=== PATIENT | female | born 1990 | race Caucasian/White ===

== ENCOUNTER → 2021-09-05 14:09 | Outpatient (BNVA) | payer OTHER, SELFPAY | PROVIDERS: Visit Provider Obstetrics & Gynecology | DX: Z12.4 Encounter for screening for malignant neoplasm of cervix (principal); N89.8 Other specified noninflammatory disorders of vagina; N93.9 Abnormal uterine and vaginal bleeding, unspecified | CPT/HCPCS: 84144; 84403; 84443; 85025; 87070; 87205; 87624 ==

== ENCOUNTER → 2021-09-14 13:46 | Outpatient (BNVA) | payer OTHER, SELFPAY | PROVIDERS: Visit Provider Obstetrics & Gynecology | DX: N93.9 Abnormal uterine and vaginal bleeding, unspecified (principal) | CPT/HCPCS: 76830 ==

== ENCOUNTER → 2021-10-02 10:45 | Outpatient (BNVA) | payer OTHER, SELFPAY | PROVIDERS: Visit Provider Obstetrics & Gynecology | DX: N93.9 Abnormal uterine and vaginal bleeding, unspecified (principal) | CPT/HCPCS: 84403 ==

== ENCOUNTER → 2021-10-05 10:45 | Outpatient (BNVA) | payer OTHER, SELFPAY | PROVIDERS: Visit Provider Obstetrics & Gynecology | DX: N93.9 Abnormal uterine and vaginal bleeding, unspecified (principal); R79.89 Other specified abnormal findings of blood chemistry; N83.202 Unspecified ovarian cyst, left side | CPT/HCPCS: 83498 ==

== ENCOUNTER → 2021-10-19 14:12 | Outpatient (BNVA) | payer OTHER, SELFPAY | PROVIDERS: Visit Provider Obstetrics & Gynecology | DX: R79.89 Other specified abnormal findings of blood chemistry (principal) | CPT/HCPCS: 82627 ==

== ENCOUNTER → 2022-01-14 12:55 | Outpatient (BNVA) | payer OTHER, SELFPAY | PROVIDERS: Visit Provider Podiatrist Foot & Ankle Surgery | DX: S93.602A Unspecified sprain of left foot, initial encounter (principal); X58.XXXA Exposure to other specified factors, initial encounter | CPT/HCPCS: 73630 ==

== ENCOUNTER 2022-01-24 13:51 | Outpatient (CLI) | payer OTHER, SELFPAY ==
--- NOTE | 2022-01-24 14:00 | MR_ITS ---
WS: [id number] MRI LEFT FOOT without CONTRAST. History: LEFT foot pain for 3 weeks. No trauma. Comparison: 01/14/2022 radiograph Multiplanar, multisequence imaging is performed without contrast. There is a small amount of increased T2 signal within the plantar intraosseous muscles and the lumbri cals of the foot. Increased T2 signal consistent with edema extends from the proximal first metatarsa l along the plantar surface of the foot to the proximal fourth metatarsal. No signal abnormality with in the marrow. Lisfranc ligament appears intact. There is no widening or asymmetry with respect to th e tarsal and metatarsal alignment. The distal calcaneus is normal. Plantar aponeurosis is normal. No marrow edema in the calcaneus or ta rose mary. MR/MR foot LT wo con* [id number] IMPRESSION: 1. No fracture. 2. Soft tissue edema is mild within the plantar intraosseous muscles and the l umbricals of the foot. Consistent with a mild sprain and soft tissue injury. 3. Lisfranc ligament appears intact.
== END 2022-01-24 13:52 | disposition home or self-care (01) ==
PROVIDERS: Visit Provider Podiatrist Foot & Ankle Surgery
DX: M79.672 Pain in left foot (principal); R60.1 Generalized edema
CPT/HCPCS: 73718

== ENCOUNTER → 2022-02-04 13:35 | Outpatient (BNVA) | payer OTHER, SELFPAY | PROVIDERS: Visit Provider Obstetrics & Gynecology | DX: N93.9 Abnormal uterine and vaginal bleeding, unspecified (principal); R79.89 Other specified abnormal findings of blood chemistry | CPT/HCPCS: 76830; 82627; 84402 ==

== ENCOUNTER → 2022-02-28 07:59 | Outpatient (BNVA) | payer OTHER, SELFPAY | PROVIDERS: Visit Provider Obstetrics & Gynecology | DX: R10.2 Pelvic and perineal pain (principal); N83.202 Unspecified ovarian cyst, left side | CPT/HCPCS: 76830 ==

== ENCOUNTER → 2024-05-04 07:50 | Outpatient (BNVA) | payer OTHER, SELFPAY | PROVIDERS: Visit Provider Obstetrics & Gynecology | DX: D25.9 Leiomyoma of uterus, unspecified (principal); N83.201 Unspecified ovarian cyst, right side | CPT/HCPCS: 76830 ==

== ENCOUNTER → 2024-08-02 08:51 | Outpatient (BNVA) | payer OTHER, SELFPAY | PROVIDERS: Visit Provider Obstetrics & Gynecology | DX: R10.2 Pelvic and perineal pain (principal); G89.29 Other chronic pain; N83.201 Unspecified ovarian cyst, right side; D25.9 Leiomyoma of uterus, unspecified | CPT/HCPCS: 76830 ==

== ENCOUNTER → 2024-09-27 12:42 | Outpatient (BNVA) | payer SELFPAY | PROVIDERS: Visit Provider Obstetrics & Gynecology | DX: R10.2 Pelvic and perineal pain (principal); G89.29 Other chronic pain; N83.202 Unspecified ovarian cyst, left side | CPT/HCPCS: 76830 ==